=== PATIENT | female | born 2005 | race Caucasian/White ===

== ENCOUNTER → 2023-04-13 09:07 | Outpatient (REF) | payer OTHER, SELFPAY | LOC: MRI 3T 09:07 | PROVIDERS: ATTENDING PHYSICIAN Psychiatry & Neurology Neurology; FAMILY PHYSICIAN Nurse Practitioner Family | DX: R25.1 Tremor, unspecified (principal); R41.0 Disorientation, unspecified | CPT/HCPCS: 70553 ==

== ENCOUNTER 2024-09-24 15:04 | Emergency (ER) | payer OTHER, SELFPAY ==
[2024-09-24 15:06] VITALS: BP 142/91
--- NOTE | 2024-09-24 16:37 | ED.GENMED ---
History of Present Illness
General
Chief Complaint: Fall
Time Seen by Provider: 09/24/24 15:39
History of Present Illness
History of Present Illness:
19-year-old female presents for evaluation after falling down her stairs 4 days ago as well as the back. She is able to ambulate however has significant pain with placing weight on the left foot. She does report intermittent paresthesias to the
left calf as well. No loss of urinary continence.
Review of Systems
Review of Systems
Allergies reviewed?: Yes
All Other Systems: ROS reviewed and negative except as documented in HPI and ROS
Phy Exam
Physical Exam
Physical Exam:
GEN: Well appearing, NAD, WDWN
HEENT: Oral mucosa moist, no scleral icterus
Cardiac: Regular rate
Lung: No respiratory distress, no tachypnea
MSK: No gross deformity or injuries. No midline lumbar spine tenderness, mild paraspinal lumbar tenderness bilaterally. She has no obvious deformity or ecchymosis to the left foot however tenderness to the first MTP joint
Skin: Good color, no pallor or jaundice, no rashes
Neuro: AO x3, moves all extremities freely
Psych: Calm, cooperative
Course
Orders/Labs/Results
Orders:
Orders
09/24/24 16:05
CR Foot - Left Min 3 Views Urgent
Comment:
Reason For Exam: fall foot injury
CR Lumbar Spine Comp Min 4 Vw* Urgent
Comment:
Reason For Exam: fall
Vital Signs
Initial and Last Documented VS:
Initial Vital Signs
Temp Pulse Resp BP Pulse Ox
98.1 F 72 16 142/91 100
09/24/24 15:06 09/24/24 15:06 09/24/24 15:06 09/24/24 15:06 09/24/24 15:06
Last Documented Vital Signs
Temp Pulse Resp BP Pulse Ox
98.1 F 72 16 142/91 100
09/24/24 15:06 09/24/24 15:06 09/24/24 15:06 09/24/24 15:06 09/24/24 16:39
MDM/Problems Addressed
MDM/Problems Addressed:
X-rays independently interpreted by me show no fracture in the lumbar spine however a mid body sesamoid fracture of the left foot. Placed in orthopedic boot will recommend outpatient podiatry follow-up
*Pulse Oximetry
SaO2: 100
Oxygen Mode of Delivery: Room air
Patient hypoxic: no
*Critical Care Note
Total Time (30-74mins, 75-104mins- exclusive of procedures): Not Applicable
ED Attending Note
-
Portions of this chart may have been created with voice recognition software.� Occasional wrong word or��sound alike� substitutions may have occurred due to the inherent limitations of voice recognition software.
Discharge Plan
Departure
Patient Disposition: Home (Routine Discharge)
Date of Disposition: 09/24/24
Time of Disposition: 16:37
Patient with high blood pressure during this ER visit?: No
Discharge Problem:
Fracture of sesamoid bone
Instructions: Foot Fracture ED
Prescriptions:
No Action
prednisone 20 MG tablet
20 mg PO DAILY 4 Days 0RF
Referrals:
Josephine Wilson CRNP [Family Provider, Internal Medicine]
Margarito Motta DPM [Active, Podiatry]
Activity Restrictions/Additional Instructions:
Use the boot at all times when walking for the next 2 weeks. Ice and elevate the foot often. Follow-up with the foot and ankle specialist for reevaluation within the next 2 weeks
Interventions
Interventions:
*Risk Screen - Suicide Last Done: 09/24/24 15:06
*General Assessment Last Done: 09/24/24 15:06
*Nursing Disposition Last Done: 09/24/24 16:52
ED-Musculoskeletal Assessment Last Done: 09/24/24 15:15
ED- Neurological Assessment Last Done: 09/24/24 15:15
ED-Skin Assessment Last Done: 09/24/24 15:15
Discharge Date and Time
Discharge Date/Time: 09/24/24 16:52
Print Language: FRENCH
== END 2024-09-24 16:52 | disposition home or self-care (01) ==
LOC: EMR 15:04
PROVIDERS: EMERGENCY PHYSICIAN Emergency Medicine; FAMILY PHYSICIAN Nurse Practitioner Family
DX: S92.812A Other fracture of left foot, initial encounter for closed fracture (principal); W10.9XXA Fall (on) (from) unspecified stairs and steps, initial encounter
CPT/HCPCS: 99284; 72110; 73630